=== PATIENT | female | born 1965 ===

== ENCOUNTER 2024-10-04 11:49 | Day surgery (SDC) | payer OTHER ==
[~2024-10-04 11:49] MED LIST: BACLOFEN
[2024-10-04] MEDS ORDERED: CEFAZOLIN SODIUM 1,000 MG VIAL IV ONE (14:30)
[2024-10-04] MEDS ORDERED: POVIDONE-IODINE 118 ML BOTT TOP ONE (14:45)
[2024-10-04] MEDS ORDERED: RINGERS SOLUTION,LACTATED 1,000 ML IV SCH (15:30)
[2024-10-04] MEDS ORDERED: ACETAMINOPHEN 325 MG TABLET PO PRN (15:45)
[2024-10-04] MEDS ORDERED: MONDOXYNE NL100 MG PO (16:02)
[2024-10-04 18:23] LABS: HEMATOCRIT 36.8 % (36.0-45.00); HEMOGLOBIN 11.9 g/dL (12.0-15.00); MEAN CELL VOLUME 74.8 fL (80.00-100.00); MEAN CORPUSCULAR HEMOGLOBIN 24.2 pg (27.00-32.0); MEAN CORPUSCULAR HGB CONC 32.4 g/dl (32.0-36.0); PLATELET COUNT 352 K/uL (150-450); RED BLOOD COUNT 4.92 M/uL (4.00-6.00); RED CELL DISTRIBUTION WIDTH 14.6 % (11.5-14.5)
[2024-10-04] MEDS ORDERED: ALBUTEROL SULFATE 3 ML/2.5 MG AMPUL.NEB IH SCH (20:00)
== END 2024-10-04 21:00 | disposition home or self-care (01) ==
LOC: CIR.AMB 11:49
PROVIDERS: ATTEND Obstetrics & Gynecology
DX: N84.0 Polyp of corpus uteri (principal); Z88.6 Allergy status to analgesic agent; J45.909 Unspecified asthma, uncomplicated

== ENCOUNTER 2025-02-21 05:30 | Day surgery (SDC) | payer OTHER ==
[2025-02-15 13:16] VITALS: BP 144/72
[~2025-02-21] VITALS: Ht 160 cm; Wt 106.1 kg
[~2025-02-21 05:30] MED LIST changes: +ARNUITY ELLIP200 MCG IH; +CLIMARA1 EAC2 TD; +MONDOXYNE NL100 MG PO
[2025-02-21] MEDS ORDERED: POVIDONE-IODINE 118 ML BOTT TOP ONE (07:16)
== END 2025-02-21 13:30 | disposition home or self-care (01) ==
LOC: CIR.AMB 05:30
PROVIDERS: ATTEND Obstetrics & Gynecology
DX: N84.0 Polyp of corpus uteri (principal); N95.0 Postmenopausal bleeding; D25.0 Submucous leiomyoma of uterus